=== PATIENT | male | born 1965 | race Caucasian/White ===

== ENCOUNTER 2016-09-03 12:38 | Emergency (ER) | payer BC ==
[~2016-09-03] VITALS: Ht 167.6 cm; Wt 88.6 kg
[~2016-09-03 12:38] MED LIST: ACTOS 15MG TAB15 MG PO; ASPIRIN 32325 MG/TAB PO; CELEBREX 200MG200 MG PO; COLACE 100100 MG/CAP PO; DESYREL 100MG100 MG PO; DULCOLAX TAB5 MG PO; FERROUS SU325 MG/TAB PO; GLUCOPHAGE500 MG/TAB PO; LANTUS100 U/ML SC; LEVAQUIN 5500 MG/TA1 PO; LIPITOR 10MG10 MG PO; MS CONTIN 660 MG/TAB PO; NITROSTAT0.4 MG/TAB SL; NORCO 325 MG-7.1 TAB PO; PRINIVIL10 MG PO; PRINIVIL5 MG PO; PROZAC 10MG10 MG PO; ROXICODONE 55 MG/TAB PO; SARAFEM10 M1 PO; ZOFRAN ODT8 MG PO
[2016-09-03 12:41] VITALS: TEMP 97.9
[2016-09-03 13:23] LABS: BASO % 0.2 % (0.0-2.0); EOS # 0.2 (0.0-0.7); EOS % 1.1 % (0-4.0); GRAN # 11.4 (1.4-6.5); GRAN % 82.9 % (42.2-75.2); HEMATOCRIT 43.7 % (42.0-52.0); HEMOGLOBIN 15.4 g/dl (13.5-18.0); LYMPH # 1.2 (1.2-3.4); LYMPH % 8.7 % (20.0-51.0); MEAN CELL VOLUME 91 fl (80.0-100.0); MEAN CORPUSCULAR HEMOGLOBIN 32 pg (27.0-31.0); MEAN CORPUSCULAR HGB CONC 35 g/dl (33.0-37.0); MEAN PLATELET VOLUME 11.5 fl (7.4-10.4); MONO # 0.9 (0.1-0.6); MONO % 6.6 % (1.7-9.3); PLATELET COUNT 181 K/mm3 (130-400); RED BLOOD COUNT 4.81 M/mm3 (4.20-5.60); REDCELL DISTRIBUTION WIDTH-CV 13.9 % (11.5-14.5); WHITE BLOOD COUNT 13.7 K/mm3 (4.8-10.8)
[2016-09-03 13:37] LABS: ADJUSTED CALCIUM 9.1 mg/dL (8.4-10.2); ALBUMIN 3.8 gm/dL (3.5-5.0); BILIRUBIN,TOTAL 1.3 mg/dL (0.0-1.0); CALCIUM 8.9 mg/dL (8.4-10.2); CREATININE, serum 0.9 mg/dL (0.66-1.25); POTASSIUM 3.9 mmol/L (3.4-5.0); TOTAL PROTEIN 7.5 gm/dL (6.4-8.2)
[2016-09-03] MEDS ORDERED: ZOHYDRO ER10 MG PO (13:38)
[2016-09-03] MEDS ORDERED: DYNACIN100 M1 PO (13:39)
[2016-09-03] MEDS ORDERED: CELEBREX50 MG PO (13:39)
[2016-09-03] MEDS ORDERED: PROZAC40 MG PO (13:54)
[2016-09-03 14:47] LABS: PH 6 (5-8); SQUAMOUS EPITHELIAL None Seen /hpf; URINE APPEARANCE Clear; URINE BACTERIA None Seen /hpf; URINE BILIRUBIN Negative (NEGATIVE); URINE BLOOD Negative (NEGATIVE); URINE COLOR Yellow; URINE GLUCOSE Negative (NEGATIVE); URINE KETONE 1+ (NEGATIVE); URINE UROBILINOGEN Negative (NEGATIVE); URINE WBC 0-2 /hpf
[2016-09-03] MEDS ORDERED: ZOFRAN ODT4 MG PO (15:35)
[2016-09-03] MEDS ORDERED: NORCO 325 MG-51 TAB PO (15:35)
[2016-09-03 16:02] VITALS: BP 107/68; PULSE 74
== END 2016-09-03 15:55 | disposition home or self-care (01) ==
LOC: COL.ER 12:38
PROVIDERS: Emergency Medicine
DX: K85.90 Acute pancreatitis without necrosis or infection, unspecified (principal); E11.9 Type 2 diabetes mellitus without complications; I10 Essential (primary) hypertension; K21.9 Gastro-esophageal reflux disease without esophagitis; F17.200 Nicotine dependence, unspecified, uncomplicated; Z79.84 Long term (current) use of oral hypoglycemic drugs
CPT/HCPCS: J2765; J3010; J7030; Q9967